=== PATIENT | male | born 1995 | race African-American/Black ===

== ENCOUNTER 2019-04-03 11:03 | Emergency (ER) | payer SELFPAY ==
[~2019-04-03] VITALS: Ht 170.2 cm; Wt 80.0 kg
[2019-04-03 11:22] VITALS: BP 135/83
== END 2019-04-03 11:40 | disposition left against medical advice (07) ==
LOC: ER 11:03
DX: Z53.21 Procedure and treatment not carried out due to patient leaving prior to being seen by health care provider (principal)

== ENCOUNTER 2019-04-03 13:00 | Emergency (ER) | payer SELFPAY | END 2019-04-03 13:35 | disposition left against medical advice (07) | LOC: ER 13:00 | DX: Z53.21 Procedure and treatment not carried out due to patient leaving prior to being seen by health care provider (principal) ==

== ENCOUNTER 2019-04-03 15:05 | Emergency (ER) | payer SELFPAY ==
[~2019-04-03] VITALS: Ht 170.2 cm; Wt 80.0 kg
[2019-04-03] MEDS ORDERED: KETOROLAC 30MG/ML VIAL IV STA (18:40)
[2019-04-03] MEDS ORDERED: SODIUM CHLORIDE 0.9% 1000ML BAG (SEPSIS BOLUS) IV ONE (18:45)
[2019-04-03] MEDS ORDERED: VANCOMYCIN 1 G PREMIX 200 ML IV ONE (18:45)
[2019-04-03] MEDS ORDERED: PIPERACILLIN/TAZ 3.375G PREMIX 50 ML IV ONE (18:45)
[2019-04-03 19:11] LABS: BASOPHILS % 0.7 % (0.0-2.0); EOSINOPHILS % 0.5 % (0.0-5.0); HEMATOCRIT. 39.4 % (42.0-52.0); HEMOGLOBIN. 12.8 g/dL (14.0-18.0); LYMPHOCYTES % 16.2 % (20.0-50.0); MEAN CORPUSCULAR HEMOGLOBIN 27.7 pg (28.0-32.0); MEAN CORPUSCULAR VOLUME 85.1 fL (80.0-94.0); NEUTROPHILS % 77.6 % (40.0-76.0); PLATELET 446 x1000/uL (130-400); RED BLOOD CELL COUNT 4.63 mill/uL (4.7-6.1); RED CELL DISTRIBUTION WIDTH 14.2 % (11.6-14.6)
[2019-04-03 19:16] LABS: CHLORIDE 103 mEq/L (98-107)
[2019-04-03 19:17] LABS: PROTHROMBIN TIME 10.5 sec (9.6-11.0)
[2019-04-03 23:07] VITALS: BP 124/61
== END 2019-04-03 23:14 | disposition home or self-care (01) ==
LOC: ER 15:46
DX: T81.40XA Infection following a procedure, unspecified, initial encounter (principal); T81.30XA Disruption of wound, unspecified, initial encounter; M54.5 Low back pain; Y83.8 Other surgical procedures as the cause of abnormal reaction of the patient, or of later complication, without mention of misadventure at the time of the procedure; Y92.89 Other specified places as the place of occurrence of the external cause; Z98.890 Other specified postprocedural states
CPT/HCPCS: 36415; 72128; 72131; 80053; 83605; 84145; 85025; 85610; 87040; 96365; 96368; 96375; 99284; J1885; J2543; J3370; J7030